=== PATIENT | female | born 2005 | race Caucasian/White ===

== ENCOUNTER 2024-06-10 11:58 | Emergency (ER) | payer OTHER ==
[~2024-06-10] VITALS: Ht 170.2 cm; Wt 68.2 kg
[2024-06-10 12:10] VITALS: TEMP 98.3
[2024-06-10] MEDS ORDERED: Ketorolac 30 MG/ML VIAL IM ONE (12:45)
[2024-06-10 12:52] LABS: PH 5.5 (5.0-8.5); URINE APPEARANCE CLOUDY (CLEAR/HAZY); URINE BLOOD 3+ (NEGATIVE); URINE COLOR YELLOW (YELLOW); URINE GLUCOSE NEGATIVE (NEGATIVE); URINE KETONE NEGATIVE (NEGATIVE); URINE NITRATE NEGATIVE (NEGATIVE); URINE PROTEIN(semi-quant) 1+ (NEGATIVE)
[2024-06-10 13:11] LABS: COLLECTION METHOD CLEAN CATCH
[2024-06-10] MEDS ORDERED: FLEXERIL 1010 MG/TAB PO (13:38)
[2024-06-10] MEDS ORDERED: CEPHALEXIN500 M1 PO (13:38)
[2024-06-10 15:02] VITALS: BP 102/71; PULSE 74
== END 2024-06-10 15:03 | disposition home or self-care (01) ==
LOC: COL.ER 11:58
PROVIDERS: Physician Assistant
DX: M54.50 Low back pain, unspecified (principal); N39.0 Urinary tract infection, site not specified; Z88.2 Allergy status to sulfonamides
CPT/HCPCS: J1885; J2360